=== PATIENT | female | born 1995 | race Caucasian/White ===

== ENCOUNTER 2016-04-20 02:27 | Emergency (ER) | payer OTHER ==
[2016-04-20 02:35] VITALS: RESP 16
[2016-04-20] MEDS ORDERED: NS 1,000 ML IV ONE (02:37)
--- NOTE | 2016-04-20 02:37 | EDPHY ---
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 She also admits to smoking marijuana. 911 was called to the [facility] due to the patient persistently vomiting on the couch. EMS does report that she vomited approximately 3 times on the couch as well as 1 time with them. They did give her Zofran 4 mg EN route. Upon arrival here to the emergency room she is highly intoxicated with alcohol she smells of alcohol she is slurring her speech as horizontal beating nystagmus she has no complaints. She does answer my questions appropriately. No trauma. This patient is on a [facility] hold. Past Medical History: no significant medical history reported by patient Past Surgical History: No significant surgical history reported by patient Social History: Mayte at [employer] student, from [place], occasional alcohol use, occasional marijuana use, denies other drugs tobacco Family History: Noncontributory ROS REVIEW OF SYSTEMS: A comprehensive 10 point review of systems is otherwise negative aside from elements mentioned in the history of present illness. Exam Constitutional smells of alcohol, intoxicated, slurring speech, sleepy, triage nursing summary reviewed, vital signs reviewed. Eyes normal conjunctivae and sclera, EOMI, PERRLA. HENT normal inspection, atraumatic, moist mucus membranes, no epistaxis, neck supple/ no meningismus, no raccoon eyes. Respiratory clear to auscultation bilaterally, normal breath sounds, no respiratory distress, no wheezing. Cardiovascular Tachycardia, regular rhythm, no murmur, no edema, distal pulses normal. Gastrointestinal soft, non-tender, no rebound, no guarding, normal bowel sounds, no distension, no pulsatile mass. Genitourinary no CVA tenderness. Musculoskeletal no midline vertebral tenderness, full range of motion, no calf swelling, no tenderness of extremities, no meningismus, good pulses, neurovascularly intact. Skin pink, warm, & dry, no rash, skin atraumatic. Neurologic slurring speech, horizontal beating nystagmus consistent with acute alcohol intoxication, truncal ataxia, awake, alert and oriented x 3, AAOx3, moves all 4 extremities equally, motor intact, sensory intact, CN II-XII intact , normal vision, Psychiatric normal mood/affect. Heme/Lymph/Immune no lymphadenopathy. Differential Diagnosis: Includes but is not limited to in a particular order acute alcohol intoxication, dehydration, marijuana intoxication, acute nausea vomiting from alcohol Medical Decision Making: This patient had an IV established patient will be given IV fluids and Zofran will monitor her closely on a geek squad agent and await sobriety. Re-evaluation: 0553; re-examination at this time this patient is resting comfortably she is now clinically sober she sat up in bed answer my questions appropriately no slurring her speech. She p.o. challenge well and ambulated without significant ataxia. She has, cooperative she is agreeable discharge the [facility]. this noticed patient when she arrives tachycardic her heart rate is currently 87. Resting comfortably no complaints. Source: Patient, Police, EMS - Medical/Surgical History Hx Asthma: No Hx Chronic Respiratory Disease: No Hx Diabetes: No Hx Cardiac Disease: No Hx Renal Disease: No Hx Cirrhosis: No Hx Alcoholism: No Hx HIV/AIDS: No Hx Splenectomy or Spleen Trauma: No Other PMH: Strep, SVT with ablation - Social History Smoking Status: Never smoked Constitutional: Initial Vital Signs Temperature (C) 36.6 C 04/20/16 02:32 Heart Rate 116 H 04/20/16 02:32 Respiratory Rate 16 04/20/16 02:32 Blood Pressure 141/99 H 04/20/16 02:32 O2 Sat (%) 100 04/20/16 02:32 O2 Delivery Mode Nasal Cannula O2 (L/minute) 2 Allergies/Adverse Reactions: No Known Allergies Allergy (Verified 04/21/14 19:20) Home Medications: Medication Instructions Recorded Bcp Unk Dose 04/21/14 Medical Decision Making - Data Points Laboratory Results: Laboratory Results 04/20/16 02:30 04/20/16 02:30 04/20/16 02:30 WBC 11.72 H 10^3/uL (3.80-9.50) RBC 4.22 10^6/uL (4.18-5.33) Hgb 12.3 L g/dL (12.6-16.3) Hct 36.4 L % (38.0-47.0) MCV 86.3 fL (81.5-99.8) MCH 29.1 pg (27.9-34.1) MCHC 33.8 g/dL (32.4-36.7) RDW 12.8 % (11.5-15.2) Plt Count 354 10^3/uL (150-400) MPV 9.9 fL (8.7-11.7) Neut % (Auto) 42.9 % (39.3-74.2) Lymph % (Auto) 50.0 H % (15.0-45.0) [place] % (Auto) 5.3 % (4.5-13.0) Eos % (Auto) 0.7 % (0.6-7.6) Baso % (Auto) 0.8 % (0.3-1.7) Nucleat RBC Rel Count 0.0 % (0.0-0.2) Absolute Neuts (auto) 5.04 10^3/uL (1.70-6.50) Absolute Lymphs (auto) 5.86 H 10^3/uL (1.00-3.00) Absolute Monos (auto) 0.62 10^3/uL (0.30-0.80) Absolute Eos (auto) 0.08 10^3/uL (0.03-0.40) Absolute Basos (auto) 0.09 10^3/uL (0.02-0.10) Absolute Nucleated RBC 0.00 10^3/uL (0-0.01) Immature Gran % 0.3 % (0.0-1.1) Immature Gran # 0.03 10^3/uL (0.00-0.10) Sodium 141 mEq/L (134-144) Potassium 3.3 L mEq/L (3.5-5.2) Chloride 103 mEq/L (97-110) Carbon Dioxide 23 mEq/l (22-31) Anion Gap 15 mEq/L (8-16) BUN 9 mg/dL (7-23) Creatinine 0.7 mg/dL (0.6-1.0) Estimated GFR > 60 Glucose 114 H mg/dL (70-100) Calcium 9.2 mg/dL (8.5-10.4) Ethyl Alcohol 191 H mg/dL (0-10) Medications Given: Discontinued Medications Sodium Chloride (Ns) 1,000 mls @ 0 mls/hr IV ONCE ONE PRN Reason: Wide Open Stop: 04/20/16 02:38 Last Admin: 04/20/16 02:48 Dose: 1,000 mls Departure - Departure Disposition: Home, Routine, Self-Care Clinical Impression: Alcoholic intoxication Qualifiers: Complication of substance-induced condition: uncomplicated Qualifier Code: ( F10.120) Alcohol abuse with intoxication, uncomplicated Condition: Good Instructions: Alcohol Intoxication (ED) Referrals: Patient,NotPresent [Unknown] - As per Instructions
[2016-04-20 02:53] LABS: % IMMATURE GRANULYOCYTES 0.3 % (0.0-1.1); ABSOLUTE IMMATURE GRANULOCYTES 0.03 10^3/uL (0.00-0.10); ADD DIFF? NO; ADD MORPH? NO; ADD SCAN? NO; ATYPICAL LYMPHOCYTE FLAG 20 (0-99); FRAGMENT RBC FLAG 0 (0-99); HEMATOCRIT 36.4 % (38.0-47.0); HEMOGLOBIN 12.3 g/dL (12.6-16.3); LEFT SHIFT FLG 0 (0-99); LIPEMIA HEMOLYSIS FLAG 90 (0-99); MEAN CELL HEMOGLOBIN 29.1 pg (27.9-34.1); MEAN CELL HEMOGLOBIN CONCENTR. 33.8 g/dL (32.4-36.7); MEAN CELL VOLUME 86.3 fL (81.5-99.8); MEAN PLATELET VOLUME 9.9 fL (8.7-11.7); PLATELET CLUMPS FLAG 0 (0-99); PLATELET COUNT 354 10^3/uL (150-400); RED BLOOD CELL COUNT 4.22 10^6/uL (4.18-5.33); RED CELL DISTRIBUTION WIDTH 12.8 % (11.5-15.2)
[2016-04-20 03:15] LABS: ANION GAP 15 mEq/L (8-16); CALCIUM 9.2 mg/dL (8.5-10.4); CARBON DIOXIDE 23 mEq/l (22-31); CHLORIDE 103 mEq/L (97-110); CREATININE 0.7 mg/dL (0.6-1.0); ETHANOL SERUM 191 mg/dL (0-10); GLOMERULAR FILTRATION RATE > 60; GLUCOSE 114 mg/dL (70-100); POTASSIUM 3.3 mEq/L (3.5-5.2); SODIUM 141 mEq/L (134-144)
[2016-04-20 04:25] VITALS: O2SAT 98
[2016-04-20 06:34] VITALS: BP 115/78; PULSE 86; TEMP 98.2
== END 2016-04-20 06:34 | disposition home or self-care (01) ==
LOC: EDUNIT#
DX: F10.120 Alcohol abuse with intoxication, uncomplicated (principal)
CPT/HCPCS: G0480

== ENCOUNTER 2018-05-02 09:15 | Emergency (ER) | payer OTHER ==
[2018-05-02] MEDS ORDERED: ONDANSETRON 4 MG/2 ML VIAL IVP ONE (09:43)
[2018-05-02] MEDS ORDERED: LORazepam 2 MG/ML INJ IVP ONE (09:43)
[2018-05-02] MEDS ORDERED: NS 1,000 ML IV ONE ×2 (09:43→09:48)
[2018-05-02] MEDS ORDERED: ACETAMINOPHEN 500 MG TAB PO ONE (09:43)
[2018-05-02] MEDS ORDERED: IBUPROFEN 800 MG TAB PO ONE (09:43)
--- NOTE | 2018-05-02 09:48 | EDPHY ---
H & P Stated Complaint: vomiting chills body aches x 1 day - Personal History LMP (Females 10-55): 22-28 Days Ago - Medical/Surgical History Hx Asthma: No Hx Chronic Respiratory Disease: No Hx Diabetes: No Hx Cardiac Disease: No Hx Renal Disease: No Hx Cirrhosis: No Hx Alcoholism: No Hx HIV/AIDS: No Hx Splenectomy or Spleen Trauma: No Other PMH: SVT with ablation 2008, bipolar, ADHD, anxiety - Social History Smoking Status: Never smoked Time Seen by Provider: 05/02/18 09:34 HPI/ROS: CHIEF COMPLAINT: Vomiting, flu-like symptoms HISTORY OF PRESENT ILLNESS: 23-year-old female generally healthy, history of anxiety disorder, complaining of 2 days of myalgias, fever, flu-like symptoms, nausea vomiting, abdominal cramping. No headache. No nuchal rigidity. No sore throat. No cough. No dyspnea. No back or flank pain. No urinary abnormality. Normal urine output. No diarrhea. PRIMARY CARE PROVIDER: REVIEW OF SYSTEMS: 10 systems reviewed and negative with the exception of the elements mentioned in the history of present illness PAST MEDICAL & SURGICAL HISTORY: up-to-date seasonal influenza vaccination. Anxiety. No history of abdominal surgeries. SOCIAL HISTORY: Nonsmoker. PHYSICAL EXAM (Prior to examination, patient consented to physical exam, hands were washed and my usual and customary physical exam procedures followed) 1) GENERAL: Well-developed, well-nourished, alert and oriented. Appears anxious 2) HEAD: Normocephalic, atraumatic 3) HEENT: Pupils equal, round, reactive to light bilaterally. Sclera anicteric. Nasopharynx, oropharynx, clear, no lesions. Dry mucous membranes. Ears bilaterally with normal tympanic membranes. No signs of otitis media otitis externa 4) NECK: Full range of motion, no meningeal signs. 5) LUNGS: Clear auscultation bilaterally, no wheezes, no rhonchi, no retractions. 6) HEART: Regular rate and rhythm, no murmur, no heave, no gallop. 7) ABDOMEN: No guarding, tender to palpation all quadrants with light touch, negative peritoneal sign, 8) MUSCULOSKELETAL: Moving all extremities, no focal areas of tenderness, no obvious trauma. No peripheral edema or discoloration. 9) BACK: No CVA tenderness, no midline vertebral tenderness, no fluctuance, no step-off, no obvious trauma, no visual or palpable abnormality. 10) SKIN: No rash, no petechiae. 11) Psychiatric: Patient is oriented X 3, there is no agitation. DIFFERENTIAL DIAGNOSIS: My differential diagnosis includes, but is not limited to, acute appendicitis, acute cholecystitis, bowel obstruction, acute pancreatitis, ovarian torsion, ectopic , gastritis and urinary tract infection. The patient understands that this diagnosis is provisional and can never be 100% accurate. This is a partial list of diagnoses considered. These considerations are based on history, physical exam, past history and reassessment. (Amanda Read) Constitutional: Initial Vital Signs Temperature (C) 36.0 C 05/02/18 09:27 Heart Rate 101 H 05/02/18 09:27 Respiratory Rate 26 H 05/02/18 09:27 Blood Pressure 88/59 L 05/02/18 09:27 O2 Sat (%) 100 05/02/18 09:27 O2 Delivery Mode Room Air Allergies/Adverse Reactions: No Known Allergies Allergy (Verified 04/21/14 19:20) Home Medications: Medication Instructions Recorded Bcp Unk Dose 04/21/14 Adderall 10 MG (*) 05/02/18 LORazepam [Ativan 1 mg (RX)] 1 mg PO Q6 PRN #7 tab 05/02/18 Ondansetron Odt [Zofran Odt] 4 mg PO Q4PRN PRN #10 tab 05/02/18 Prozac 10 MG (*) 05/02/18 Medical Decision Making ED Course/Re-evaluation: 1102 a.m.: Re-evaluation after Zofran, IV fluids. Patient is smiling, states that she is feeling "totally better". I re-examined her abdomen which is soft no guarding no rebound. I am unable to elicit any abdominal pain on exam Patient is tolerating oral intake. Doubt acute surgical abdominal pathology. Patient expresses concern because vomiting will typically induced anxiety. She feels comfortable prescription for Zofran a small prescription for Ativan should she develop further anxiety. At this time I do not think that imaging studies indicated. She would like to be discharged. Given my usual and customary abdominal precautions instructions. All Questions and concerns addressed by myself. Care of patient under supervision of secondary supervising physician Dr Farooq . (Amanda Read) I did not see this patient while she was in the emergency department. However her care is discussed with the PA while the patient is in the department. I agree with treatment plan and management (Km Farooq) - Data Points Laboratory Results: Laboratory Results 05/02/18 09:40 05/02/18 09:40 05/02/18 05/02/18 05/02/18 09:40 09:40 09:40 WBC RBC Hgb Hct MCV MCH MCHC RDW Plt Count MPV Neut % (Auto) Lymph % (Auto) [place] % (Auto) Eos % (Auto) Baso % (Auto) Nucleat RBC Rel Count Absolute Neuts (auto) Absolute Lymphs (auto) Absolute Monos (auto) Absolute Eos (auto) Absolute Basos (auto) Absolute Nucleated RBC Immature Gran % Immature Gran # PT 12.6 SEC SEC (12.0-15.0) INR 0.92 (0.83-1.16) APTT 22.6 SEC L SEC (23.0-38.0) VBG Lactic Acid Sodium Potassium Chloride Carbon Dioxide Anion Gap BUN Creatinine Estimated GFR Glucose Calcium Total Bilirubin Conjugated Bilirubin Unconjugated Bilirubin AST ALT Alkaline Phosphatase Total Protein Albumin Lipase Nasal Influenza A PCR NEGATIVE FOR FLU A (NEGATIVE) Nasal Influenza B PCR NEGATIVE FOR FLU B (NEGATIVE) Monoscreen NEGATIVE (NEGATIVE) 05/02/18 05/02/18 05/02/18 09:40 09:40 06:50 WBC 9.74 10^3/uL H 10^3/uL (3.80-9.50) RBC 4.77 10^6/uL 10^6/uL (4.18-5.33) Hgb 14.1 g/dL g/dL (12.6-16.3) Hct 41.3 % % (38.0-47.0) MCV 86.6 fL fL (81.5-99.8) MCH 29.6 pg pg (27.9-34.1) MCHC 34.1 g/dL g/dL (32.4-36.7) RDW 12.9 % % (11.5-15.2) Plt Count 271 10^3/uL 10^3/uL (150-400) MPV 9.7 fL fL (8.7-11.7) Neut % (Auto) 76.3 % H % (39.3-74.2) Lymph % (Auto) 15.9 % % (15.0-45.0) [place] % (Auto) 7.2 % % (4.5-13.0) Eos % (Auto) 0.1 % L % (0.6-7.6) Baso % (Auto) 0.3 % % (0.3-1.7) Nucleat RBC Rel Count 0.0 % % (0.0-0.2) Absolute Neuts (auto) 7.43 10^3/uL H 10^3/uL (1.70-6.50) Absolute Lymphs (auto) 1.55 10^3/uL 10^3/uL (1.00-3.00) Absolute Monos (auto) 0.70 10^3/uL 10^3/uL (0.30-0.80) Absolute Eos (auto) 0.01 10^3/uL L 10^3/uL (0.03-0.40) Absolute Basos (auto) 0.03 10^3/uL 10^3/uL (0.02-0.10) Absolute Nucleated RBC 0.00 10^3/uL 10^3/uL (0-0.01) Immature Gran % 0.2 % % (0.0-1.1) Immature Gran # 0.02 10^3/uL 10^3/uL (0.00-0.10) PT INR APTT VBG Lactic Acid 2.1 mmol/L mmol/L (0.7-2.1) Sodium 138 mEq/L mEq/L (135-145) Potassium 4.1 mEq/L mEq/L (3.5-5.2) Chloride 105 mEq/L mEq/L (97-110) Carbon Dioxide 19 mEq/l L mEq/l (22-31) Anion Gap 14 mEq/L mEq/L (6-14) BUN 9 mg/dL mg/dL (7-23) Creatinine 0.7 mg/dL mg/dL (0.6-1.0) Estimated GFR > 60 Glucose 118 mg/dL H mg/dL (70-100) Calcium 9.9 mg/dL mg/dL (8.5-10.4) Total Bilirubin 0.6 mg/dL mg/dL (0.1-1.4) Conjugated Bilirubin 0.2 mg/dL mg/dL (0.0-0.5) Unconjugated Bilirubin 0.4 mg/dL mg/dL (0.0-1.1) AST 31 IU/L IU/L (14-46) ALT 25 IU/L IU/L (9-52) Alkaline Phosphatase 62 IU/L IU/L (38-126) Total Protein 8.2 g/dL g/dL (6.3-8.2) Albumin 4.9 g/dL g/dL (3.5-5.0) Lipase 70 IU/L IU/L (23-300) Nasal Influenza A PCR Nasal Influenza B PCR Monoscreen Medications Given: Discontinued Medications Acetaminophen (Tylenol) 1,000 mg PO EDNOW ONE Stop: 05/02/18 09:44 Last Admin: 05/02/18 09:50 Dose: 1,000 mg Sodium Chloride (Ns) 1,000 mls @ 0 mls/hr IV ONCE ONE PRN Reason: Wide Open Stop: 05/02/18 09:44 Last Admin: 05/02/18 09:51 Dose: 1,000 mls Sodium Chloride (Ns) 1,000 mls @ 0 mls/hr IV ONCE ONE PRN Reason: Wide Open Stop: 05/02/18 09:49 Last Admin: 05/02/18 09:51 Dose: 1,000 mls Ibuprofen (Motrin) 800 mg PO EDNOW ONE Stop: 05/02/18 09:44 Last Admin: 05/02/18 09:50 Dose: 800 mg Lorazepam (Ativan Injection) 1 mg IVP EDNOW ONE Stop: 05/02/18 09:44 Last Admin: 05/02/18 09:50 Dose: 1 mg Ondansetron HCl (Zofran) 4 mg IVP EDNOW ONE Stop: 05/02/18 09:44 Last Admin: 05/02/18 09:50 Dose: 4 mg Departure - Departure Disposition: Home, Routine, Self-Care Clinical Impression: Nausea & vomiting, Anxiety Condition: Good Instructions: Acute Nausea and Vomiting (ED) Additional Instructions: Seek immediate medical attention if you develop new or worsening symptoms, if you develop fevers, chills, inability to tolerate oral intake or any other symptoms that concerns you. Referrals: [facility] [Clinic] - 1-2 days without fail Stand Alone Forms: School Excuse Prescriptions: LORazepam [Ativan 1 mg (RX)] 1 mg PO Q6 PRN #7 tab PRN Reason: Anxiety Ondansetron Odt [Zofran Odt] 4 mg PO Q4PRN PRN #10 tab PRN Reason: Nausea
[2018-05-02 09:54] LABS: PLATELET COUNT 271 10^3/uL (150-400)
[2018-05-02 10:04] LABS: INR 0.92 (0.83-1.16); PROTIME(PATIENT) 12.6 SEC (12.0-15.0)
[2018-05-02 11:03] VITALS: BP 121/76
== END 2018-05-02 11:13 | disposition home or self-care (01) ==
DX: R11.2 Nausea with vomiting, unspecified (principal); F41.9 Anxiety disorder, unspecified
CPT/HCPCS: 96374; J2060; J2405